=== PATIENT | male | born 1940 | race African-American/Black ===

== ENCOUNTER 2017-12-27 04:24 | Inpatient (IN) | payer OTHER, MEDICAID ==
[~2017-12-27] VITALS: Ht 182.9 cm; Wt 74.8 kg
[2017-12-27] MEDS ORDERED: ACETAMINOPHEN 325MG TABLET PO ONE (05:45)
[2017-12-27 07:55] LABS: CHLORIDE 100 mEq/L (98-107)
[2017-12-27 08:02] LABS: HEMATOCRIT. 37.5 % (42.0-52.0); HEMOGLOBIN. 12.8 g/dL (14.0-18.0); MEAN CORPUSCULAR HEMOGLOBIN 28.7 pg (28.0-32.0); MEAN PLATELET VOLUME 6.8 fl (7.4-10.4); PLATELET 472 x1000/uL (130-400); RED BLOOD CELL COUNT 4.46 mill/uL (4.7-6.1); RED CELL DISTRIBUTION WIDTH 14.3 % (11.6-14.6)
[2017-12-27 09:08] LABS: PLATELET ESTIMATE SLIGHTLY INCREASED
[2017-12-27] MEDS ORDERED: SODIUM CHLORIDE 0.9% 1,000 ML IV ONE (09:09)
[2017-12-27] MEDS ORDERED: VANCOMYCIN 1 G PREMIX 200 ML IV ONE (09:15)
[2017-12-27] MEDS ORDERED: PIPERACILLIN/TAZ 3.375G PREMIX 50 ML IV ONE (09:15)
[2017-12-27 09:29] LABS: CLARITY URINE CLOUDY (CLEAR); COLOR URINE AMBER (YELLOW); KETONES URINE TRACE (NEGATIVE); LEUKOCYTE ESTERASE URINE 1+ (NEGATIVE); NITRITE URINE NEGATIVE (NEGATIVE); OCCULT BLOOD URINE TRACE (NEGATIVE); PH URINE 5.5 (4.5-8.0); PROTEIN URINE 2+ (NEGATIVE); SPECIFIC GRAVITY URINE 1.024 (1.005-1.030)
[2017-12-27 10:22] LABS: INR 1.2; PROTHROMBIN TIME 12.7 sec (9.4-11.6)
[2017-12-27] MEDS ORDERED: ACETAMINOPHEN 325MG TABLET PO PRN (10:30)
[2017-12-27] MEDS ORDERED: ONDANSETRON HCL 4MG/2ML VIAL IV PRN (11:15)
[2017-12-27] MEDS ORDERED: GUAIFENESIN 200MG/10ML SUGAR FREE UDC PO PRN (11:15)
[2017-12-27] MEDS ORDERED: IPRATROPIUM/ALBUTEROL 0.5-3(2.5)MG/3ML NEB INH PRN (11:15)
[2017-12-27] MEDS ORDERED: VANCOMYCIN 1 G PREMIX 200 ML IV SCH ×2 (11:15→18:00)
[2017-12-27] MEDS ORDERED: DIPHENHYDRAMINE 50MG/ML VIAL IV PRN (11:15)
[2017-12-27] MEDS ORDERED: NA PHOS,M-B/NA PHOS,DI-BA ENEMA 118ML PR PRN (11:15)
[2017-12-27] MEDS ORDERED: MAGNESIUM/ALUMINUM HYDROXIDE/SIMETHICONE 30ML UDC PO PRN (11:15)
[2017-12-27] MEDS ORDERED: TRAMADOL 50MG TABLET PO PRN (11:15)
[2017-12-27] MEDS ORDERED: NITROGLYCERIN 0.4MG TABLET SL SL PRN (11:15)
[2017-12-27] MEDS ORDERED: DOCUSATE SODIUM 100MG CAPSULE PO PRN (11:15)
[2017-12-27 16:20] VITALS: BP 134/65
[2017-12-27 16:30] VITALS: BP 134/65
[2017-12-27] MEDS: FAMOTIDINE 20MG TABLET PO SCH (17:00)
[2017-12-27] MEDS: ENOXAPARIN 40MG/0.4ML SYR SUBCUT SCH (17:00)
[2017-12-27] MEDS ORDERED: DICL50TA9 PO (18:23)
[2017-12-27] MEDS ORDERED: HYDR-4001 PO (18:23)
[2017-12-27] MEDS ORDERED: AMLO5TAB88 PO (18:23)
[2017-12-27] MEDS: PIPERACILLIN/TAZ 3.375G PREMIX 50 ML IV SCH ×2 (19:25→23:29)
[2017-12-27 20:00] VITALS: BP 117/65
[2017-12-27] MEDS: ASCORBIC ACID 500 MG TABLET PO SCH (20:23)
[2017-12-27] MEDS: ACETAMINOPHEN 325MG TABLET PO PRN (20:39)
[2017-12-27] MEDS: ZOLPIDEM TARTRATE 5MG TABLET PO PRN (23:28)
[2017-12-28] VITALS: BP 114/60
[2017-12-28] MEDS: LORAZEPAM 0.5MG TABLET PO PRN ×2 (00:38→21:09)
[2017-12-28] MEDS: MORPHINE SULFATE 4 MG/ML CPJ (NOT FOR IM USE) IV PRN (01:55)
[2017-12-28 04:00] VITALS: BP 133/68
[2017-12-28] MEDS: PIPERACILLIN/TAZ 3.375G PREMIX 50 ML IV SCH ×3 (05:55→21:45)
[2017-12-28 08:00] VITALS: BP 135/69
[2017-12-28] MEDS: ZINC SULFATE 220 MG ( 50 ) CAPSULE PO SCH (09:06)
[2017-12-28] MEDS: ASCORBIC ACID 500 MG TABLET PO SCH ×2 (09:07→21:09)
[2017-12-28] MEDS: FAMOTIDINE 20MG TABLET PO SCH (09:07)
[2017-12-28 12:00] VITALS: BP 139/73
[2017-12-28] MEDS ORDERED: DILTIAZEM HCL 30MG TABLET PO SCH (12:30)
[2017-12-28] MEDS: VANCOMYCIN 1250MG in DEXTROSE 5% WATER 250ML IV SCH (13:24)
[2017-12-28 16:00] VITALS: BP 138/68
[2017-12-28] MEDS: DEXT 5%/0.45% NACL 1000ML 1,000 ML IV SCH (16:14)
[2017-12-28] MEDS: ENOXAPARIN 40MG/0.4ML SYR SUBCUT SCH (17:26)
[2017-12-28 20:00] VITALS: BP 140/73
[2017-12-28] MEDS: DILTIAZEM HCL 60MG TABLET PO SCH (21:29)
[2017-12-28] MEDS: ZOLPIDEM TARTRATE 5MG TABLET PO PRN (22:29)
[2017-12-29] VITALS (9 sets, daily range): BP systolic 125–149; BP diastolic 65–99
[2017-12-29] MEDS: PIPERACILLIN/TAZ 3.375G PREMIX 50 ML IV SCH ×4 (02:07→20:35)
[2017-12-29] MEDS: DEXT 5%/0.45% NACL 1000ML 1,000 ML IV SCH (02:08)
[2017-12-29] MEDS: DILTIAZEM HCL 60MG TABLET PO SCH (05:09)
[2017-12-29] MEDS: VANCOMYCIN 1250MG in DEXTROSE 5% WATER 250ML IV SCH (05:09)
[2017-12-29 05:36] LABS: HEMATOCRIT. 35.1 % (42.0-52.0); HEMOGLOBIN. 11.8 g/dL (14.0-18.0); MEAN CORPUSCULAR HEMOGLOBIN 28.1 pg (28.0-32.0); MEAN CORPUSCULAR VOLUME 83.4 fL (80.0-94.0); MEAN PLATELET VOLUME 7.2 fl (7.4-10.4); PLATELET 276 x1000/uL (130-400); RED BLOOD CELL COUNT 4.21 mill/uL (4.7-6.1); RED CELL DISTRIBUTION WIDTH 14.7 % (11.6-14.6)
[2017-12-29 06:14] LABS: CHLORIDE 108 mEq/L (98-107)
[2017-12-29] MEDS ORDERED: POTASSIUM CHLORIDE 20MEQ TABLET SR PO NR ×2 (08:45→17:00)
[2017-12-29 09:00] LABS: BG BASE EXCESS 2.5 mmol/L (-2.0-2.0); BG CARBOXYHEMOGLOBIN 0.5 % (0.5-1.5); BG DEOXYHEMOGLOBIN 5.8 % (0.0-5.0); BG FRACTION INSPIRED OXYGEN 21; BG HCO3 ACT 24.2 mmol/L (22.0-26.0); BG METHEMOGLOBIN 0.4 % (0.0-1.5); BG OXYGEN SATURATION 94.1 % (92.0-98.5); BG OXYHEMOGLOBIN 93.3 % (94.0-97.0); BG PH 7.539 (7.350-7.450); BG PO2 66.7 mmHg (75.0-100.0); BG SAMPLE SITE RIGHT RADIAL; BG TOTAL HEMOGLOBIN 13.3 g/dL (12.0-18.0); BG VENT MODE ROOM AIR
[2017-12-29] MEDS: ASCORBIC ACID 500 MG TABLET PO SCH ×2 (09:00→22:03)
[2017-12-29] MEDS ORDERED: POTASSIUM CHLORIDE INJ 40 MEQ in DEXT 5% WATER 500 ML IV NR (09:30)
[2017-12-29] MEDS: FAMOTIDINE 20MG TABLET PO SCH ×2 (09:33→22:03)
[2017-12-29] MEDS: ZINC SULFATE 220 MG ( 50 ) CAPSULE PO SCH (09:34)
[2017-12-29 12:17] LABS: BG BASE EXCESS 0.6 mmol/L (-2.0-2.0); BG CARBOXYHEMOGLOBIN 0.1 % (0.5-1.5); BG DEOXYHEMOGLOBIN 1.1 % (0.0-5.0); BG FRACTION INSPIRED OXYGEN 60; BG HCO3 ACT 22.8 mmol/L (22.0-26.0); BG METHEMOGLOBIN 0.4 % (0.0-1.5); BG OXYGEN SATURATION 98.9 % (92.0-98.5); BG OXYHEMOGLOBIN 98.4 % (94.0-97.0); BG PCO2 29.3 mmHg (35.0-45.0); BG PH 7.508 (7.350-7.450); BG SAMPLE SITE RIGHT BRACHIAL; BG TOTAL HEMOGLOBIN 12.8 g/dL (12.0-18.0); BG VENT MODE MASK - SIMPLE
[2017-12-29] MEDS ORDERED: IPRATROPIUM/ALBUTEROL 0.5-3(2.5)MG/3ML NEB HHN PRN (13:00)
[2017-12-29] MEDS ORDERED: FUROSEMIDE 40MG/4ML VIAL IVP NR (13:45)
[2017-12-29] MEDS: IPRATROPIUM BROMIDE (0.02%) 0.5MG/2.5ML NEB HHN SCH ×2 (14:22→21:58)
[2017-12-29 14:25] LABS: PLATELET ESTIMATE NORMAL
[2017-12-29] MEDS: DILTIAZEM HCL 90MG TABLET PO SCH ×2 (14:59→22:11)
[2017-12-29] MEDS ORDERED: VANCOMYCIN 1500MG in DEXTROSE 5% WATER 250ML IV SCH (17:00)
[2017-12-29] MEDS: ENOXAPARIN 40MG/0.4ML SYR SUBCUT SCH (18:00)
[2017-12-29] MEDS: CEFAZOLIN 2,000 MG in DEXT 5% WATER 100 ML IV SCH (18:02)
[2017-12-29] MEDS: LORAZEPAM 0.5MG TABLET PO PRN (18:06)
[2017-12-29] MEDS: ZOLPIDEM TARTRATE 5MG TABLET PO PRN (22:03)
[2017-12-30] VITALS (9 sets, daily range): BP systolic 116–164; BP diastolic 65–91
[2017-12-30] MEDS: LORAZEPAM 0.5MG TABLET PO PRN (00:59)
[2017-12-30] MEDS: IPRATROPIUM BROMIDE (0.02%) 0.5MG/2.5ML NEB HHN SCH ×4 (02:12→21:12)
[2017-12-30] MEDS: PIPERACILLIN/TAZ 3.375G PREMIX 50 ML IV SCH ×4 (02:24→21:00)
[2017-12-30] MEDS: CEFAZOLIN 2,000 MG in DEXT 5% WATER 100 ML IV SCH ×3 (02:50→16:44)
[2017-12-30 05:33] LABS: HEMOGLOBIN. 12.7 g/dL (14.0-18.0); MEAN CORPUSCULAR VOLUME 84.2 fL (80.0-94.0); MEAN PLATELET VOLUME 7.6 fl (7.4-10.4); PLATELET 247 x1000/uL (130-400); RED BLOOD CELL COUNT 4.52 mill/uL (4.7-6.1); RED CELL DISTRIBUTION WIDTH 14.7 % (11.6-14.6)
[2017-12-30] MEDS: DILTIAZEM HCL 90MG TABLET PO SCH ×3 (06:09→21:17)
[2017-12-30 06:29] LABS: CHLORIDE 109 mEq/L (98-107)
[2017-12-30 06:37] LABS: CREATINE KINASE 46 IU/L (39-308)
[2017-12-30 06:42] LABS: T4 FREE 1.45 ng/dL (0.76-1.46)
[2017-12-30 07:11] LABS: ATYPICAL LYMPHOCYTES 3; PLATELET ESTIMATE NORMAL
[2017-12-30] MEDS: ZINC SULFATE 220 MG ( 50 ) CAPSULE PO SCH (08:24)
[2017-12-30] MEDS: ASCORBIC ACID 500 MG TABLET PO SCH ×2 (08:24→21:17)
[2017-12-30] MEDS: FAMOTIDINE 20MG TABLET PO SCH ×2 (08:25→21:17)
[2017-12-30 09:23] LABS: C REACTIVE PROTEIN QUANT > 190.0 mg/L (0.0-3.0)
[2017-12-30] MEDS ORDERED: KCL 20MEQ/100ML PREMIX 100 ML IV NR (09:30)
[2017-12-30] MEDS: ENOXAPARIN 40MG/0.4ML SYR SUBCUT SCH (16:43)
[2017-12-30] MEDS: ZOLPIDEM TARTRATE 5MG TABLET PO PRN (21:17)
[2017-12-31] VITALS (21 sets, daily range): BP systolic 117–169; BP diastolic 61–80
[2017-12-31] MEDS: PIPERACILLIN/TAZ 3.375G PREMIX 50 ML IV SCH ×3 (01:41→14:27)
[2017-12-31] MEDS: MORPHINE SULFATE 4 MG/ML CPJ (NOT FOR IM USE) IV PRN (01:44)
[2017-12-31] MEDS: CEFAZOLIN 2,000 MG in DEXT 5% WATER 100 ML IV SCH ×3 (02:47→17:32)
[2017-12-31] MEDS: IPRATROPIUM BROMIDE (0.02%) 0.5MG/2.5ML NEB HHN SCH ×4 (03:25→20:43)
[2017-12-31] MEDS: DILTIAZEM HCL 90MG TABLET PO SCH ×3 (06:04→21:01)
[2017-12-31 06:31] LABS: HEMATOCRIT. 38.3 % (42.0-52.0); HEMOGLOBIN. 12.8 g/dL (14.0-18.0); MEAN CORPUSCULAR HEMOGLOBIN 28.2 pg (28.0-32.0); MEAN CORPUSCULAR VOLUME 84.2 fL (80.0-94.0); PLATELET 238 x1000/uL (130-400); RED BLOOD CELL COUNT 4.55 mill/uL (4.7-6.1); RED CELL DISTRIBUTION WIDTH 14.8 % (11.6-14.6)
[2017-12-31 06:34] LABS: CHLORIDE 114 mEq/L (98-107)
[2017-12-31] MEDS: ASCORBIC ACID 500 MG TABLET PO SCH ×2 (09:54→21:01)
[2017-12-31] MEDS: ZINC SULFATE 220 MG ( 50 ) CAPSULE PO SCH (09:54)
[2017-12-31] MEDS: FAMOTIDINE 20MG TABLET PO SCH ×2 (09:54→21:01)
[2017-12-31] MEDS ORDERED: KCL 20MEQ/100ML PREMIX 100 ML IV ONE (15:00)
[2017-12-31 17:12] LABS: PLATELET ESTIMATE NORMAL
[2017-12-31] MEDS: ENOXAPARIN 40MG/0.4ML SYR SUBCUT SCH (17:14)
[2017-12-31] MEDS ORDERED: BISACODYL 10MG SUPP PR ONE (17:30)
[2017-12-31] MEDS ORDERED: BLOOD SUGAR DIAGNOSTIC STRIP TEST SCH (17:53)
[2017-12-31] MEDS ORDERED: INSULIN LISPRO 100 UNITS/ML SUBCUT SCH (18:00)
[2017-12-31] MEDS ORDERED: DEXTROSE 50% WATER 50ML SYRINGE IV PRN (18:00)
[2017-12-31] MEDS ORDERED: KCL 20MEQ/100ML PREMIX 100 ML IV SCH (21:00)
[2017-12-31] MEDS: INSULIN LISPRO 100 UNITS/ML SUBCUT SCH (21:00)
[2017-12-31] MEDS: ZOLPIDEM TARTRATE 5MG TABLET PO PRN (21:01)
[2017-12-31] MEDS: DEXT 5% WATER + KCL 20MEQ/L 1,000 ML IV SCH (21:01)
[2017-12-31] MEDS: BLOOD SUGAR DIAGNOSTIC STRIP TEST SCH (21:02)
[2018-01-01] VITALS (9 sets, daily range): BP systolic 127–150; BP diastolic 66–86
[2018-01-01] MEDS: IPRATROPIUM BROMIDE (0.02%) 0.5MG/2.5ML NEB HHN SCH ×4 (02:36→20:22)
[2018-01-01] MEDS: CEFAZOLIN 2,000 MG in DEXT 5% WATER 100 ML IV SCH ×3 (02:40→17:42)
[2018-01-01] MEDS: DILTIAZEM HCL 90MG TABLET PO SCH ×3 (05:19→22:47)
[2018-01-01 06:41] LABS: HEMATOCRIT. 42.2 % (42.0-52.0); HEMOGLOBIN. 13.8 g/dL (14.0-18.0); MEAN CORPUSCULAR HEMOGLOBIN 27.9 pg (28.0-32.0); MEAN CORPUSCULAR VOLUME 85.3 fL (80.0-94.0); MEAN PLATELET VOLUME 8.4 fl (7.4-10.4); PLATELET 283 x1000/uL (130-400); RED BLOOD CELL COUNT 4.94 mill/uL (4.7-6.1); RED CELL DISTRIBUTION WIDTH 14.9 % (11.6-14.6)
[2018-01-01] MEDS: BLOOD SUGAR DIAGNOSTIC STRIP TEST SCH ×4 (07:35→21:00)
[2018-01-01] MEDS: FAMOTIDINE 20MG TABLET PO SCH ×2 (08:17→22:45)
[2018-01-01] MEDS: ASCORBIC ACID 500 MG TABLET PO SCH ×2 (08:18→22:45)
[2018-01-01] MEDS: INSULIN LISPRO 100 UNITS/ML SUBCUT SCH ×4 (08:18→23:15)
[2018-01-01] MEDS: ZINC SULFATE 220 MG ( 50 ) CAPSULE PO SCH (08:18)
[2018-01-01 08:20] LABS: CHLORIDE 112 mEq/L (98-107)
[2018-01-01] MEDS: DEXT 5% WATER + KCL 20MEQ/L 1,000 ML IV SCH ×2 (08:38→22:47)
[2018-01-01 12:53] LABS: PLATELET ESTIMATE NORMAL
[2018-01-01] MEDS: ENOXAPARIN 40MG/0.4ML SYR SUBCUT SCH (17:42)
[2018-01-01] MEDS ORDERED: VANCOMYCIN HCL 1000 MG/20 ML ORAL PO SCH (18:00)
[2018-01-02] MEDS: IPRATROPIUM BROMIDE (0.02%) 0.5MG/2.5ML NEB HHN SCH ×3 (01:25→19:49)
[2018-01-02] MEDS: CEFAZOLIN 2,000 MG in DEXT 5% WATER 100 ML IV SCH ×3 (02:20→19:09)
[2018-01-02 06:29] LABS: HEMATOCRIT 43.6 % (42.0-52.0); HEMOGLOBIN 14.4 g/dL (14.0-18.0); MEAN CORPUSCULAR VOLUME 84.8 fL (80.0-94.0); PLATELET 434 x1000/uL (130-400); RED BLOOD CELL COUNT 5.14 mill/uL (4.7-6.1); RED CELL DISTRIBUTION WIDTH 14.7 % (11.6-14.6)
[2018-01-02 06:42] LABS: CHLORIDE 107 mEq/L (98-107)
[2018-01-02] MEDS: DILTIAZEM HCL 90MG TABLET PO SCH ×3 (07:10→21:33)
[2018-01-02] MEDS: BLOOD SUGAR DIAGNOSTIC STRIP TEST SCH ×4 (07:30→21:33)
[2018-01-02 08:00] VITALS: BP 141/64
[2018-01-02] MEDS: INSULIN LISPRO 100 UNITS/ML SUBCUT SCH ×4 (08:00→21:00)
[2018-01-02] MEDS: ZINC SULFATE 220 MG ( 50 ) CAPSULE PO SCH (08:52)
[2018-01-02] MEDS: ASCORBIC ACID 500 MG TABLET PO SCH ×2 (08:52→21:32)
[2018-01-02] MEDS: FAMOTIDINE 20MG TABLET PO SCH ×2 (08:52→21:32)
[2018-01-02] MEDS: DEXT 5% WATER + KCL 20MEQ/L 1,000 ML IV SCH (11:44)
[2018-01-02 12:00] VITALS: BP 148/76
[2018-01-02] MEDS ORDERED: KCL 20MEQ/100ML PREMIX 100 ML IV NR (12:30)
[2018-01-02 16:00] VITALS: BP 151/94
[2018-01-02] MEDS: ENOXAPARIN 40MG/0.4ML SYR SUBCUT SCH (17:18)
[2018-01-02] MEDS ORDERED: IOHEXOL-300 100 ML BOTTLE ONE (18:45)
[2018-01-02 20:00] VITALS: BP 151/68
[2018-01-02] MEDS: ACETAMINOPHEN 325MG TABLET PO PRN (21:32)
[2018-01-02] MEDS ORDERED: VANCOMYCIN 1 G PREMIX 200 ML IV SCH (23:15)
[2018-01-02] MEDS ORDERED: LEVOFLOXACIN 750MG PREMIX 150 ML IV ONE (23:15)
[2018-01-03] VITALS (8 sets, daily range): BP systolic 119–140; BP diastolic 53–103
[2018-01-03] MEDS: MEROPENEM 1,000 MG in SODIUM CHLORIDE 0.9% 100 ML IV SCH ×3 (01:38→18:16)
[2018-01-03] MEDS: DEXT 5% WATER + KCL 20MEQ/L 1,000 ML IV SCH ×2 (01:39→20:28)
[2018-01-03] MEDS: IPRATROPIUM BROMIDE (0.02%) 0.5MG/2.5ML NEB HHN SCH ×3 (02:05→14:35)
[2018-01-03] MEDS ORDERED: VANCOMYCIN 1250MG in DEXTROSE 5% WATER 250ML IV NR (03:00)
[2018-01-03] MEDS: VANCOMYCIN 1500MG in DEXTROSE 5% WATER 250ML IV SCH ×2 (04:42→18:16)
[2018-01-03 06:10] LABS: HEMATOCRIT. 42.2 % (42.0-52.0); HEMOGLOBIN. 13.8 g/dL (14.0-18.0); MEAN CORPUSCULAR HEMOGLOBIN 28.1 pg (28.0-32.0); MEAN CORPUSCULAR VOLUME 85.8 fL (80.0-94.0); MEAN PLATELET VOLUME 9.7 fl (7.4-10.4); PLATELET 379 x1000/uL (130-400); RED BLOOD CELL COUNT 4.92 mill/uL (4.7-6.1); RED CELL DISTRIBUTION WIDTH 14.8 % (11.6-14.6)
[2018-01-03] MEDS: DILTIAZEM HCL 90MG TABLET PO SCH ×3 (06:20→20:26)
[2018-01-03 07:28] LABS: CHLORIDE 107 mEq/L (98-107)
[2018-01-03] MEDS: INSULIN LISPRO 100 UNITS/ML SUBCUT SCH ×4 (07:53→20:30)
[2018-01-03] MEDS: BLOOD SUGAR DIAGNOSTIC STRIP TEST SCH ×4 (07:53→20:28)
[2018-01-03 08:19] LABS: PLATELET ESTIMATE NORMAL
[2018-01-03] MEDS ORDERED: LEVOFLOXACIN 500MG PREMIX 100 ML IV SCH (09:00)
[2018-01-03] MEDS: ASCORBIC ACID 500 MG TABLET PO SCH ×2 (09:04→20:27)
[2018-01-03] MEDS: ZINC SULFATE 220 MG ( 50 ) CAPSULE PO SCH (09:04)
[2018-01-03] MEDS: FAMOTIDINE 20MG TABLET PO SCH ×2 (09:04→20:26)
[2018-01-03 10:41] LABS: HEPATITIS B SURFACE ANTIGEN NEGATIVE
[2018-01-03] MEDS ORDERED: IOHEXOL-300 100 ML BOTTLE ONE (10:47)
[2018-01-03 11:08] LABS: HEPATITIS B CORE AB IGM NEGATIVE
[2018-01-03 11:10] LABS: HEPATITIS A AB IGM NEGATIVE (NEGATIVE)
[2018-01-03] MEDS: ENOXAPARIN 40MG/0.4ML SYR SUBCUT SCH (18:16)
[2018-01-04] VITALS (15 sets, daily range): BP systolic 110–152; BP diastolic 58–76
[2018-01-04] MEDS: IPRATROPIUM BROMIDE (0.02%) 0.5MG/2.5ML NEB HHN SCH ×3 (01:31→21:03)
[2018-01-04] MEDS: MEROPENEM 1,000 MG in SODIUM CHLORIDE 0.9% 100 ML IV SCH ×2 (01:54→10:35)
[2018-01-04] MEDS: VANCOMYCIN 1500MG in DEXTROSE 5% WATER 250ML IV SCH (05:31)
[2018-01-04] MEDS: DILTIAZEM HCL 90MG TABLET PO SCH ×3 (05:37→20:33)
[2018-01-04 06:17] LABS: HEMATOCRIT. 32.8 % (42.0-52.0); MEAN CORPUSCULAR HEMOGLOBIN 28.3 pg (28.0-32.0); MEAN CORPUSCULAR VOLUME 84.2 fL (80.0-94.0); MEAN PLATELET VOLUME 8.3 fl (7.4-10.4); PLATELET 592 x1000/uL (130-400); RED BLOOD CELL COUNT 3.89 mill/uL (4.7-6.1); RED CELL DISTRIBUTION WIDTH 14.1 % (11.6-14.6)
[2018-01-04 06:22] LABS: CHLORIDE 107 mEq/L (98-107)
[2018-01-04 07:56] LABS: BG BASE EXCESS 0.3 mmol/L (-2.0-2.0); BG CARBOXYHEMOGLOBIN 0.8 % (0.5-1.5); BG DEOXYHEMOGLOBIN 4.1 % (0.0-5.0); BG HCO3 ACT 22.4 mmol/L (22.0-26.0); BG METHEMOGLOBIN 0.4 % (0.0-1.5); BG OXYGEN SATURATION 95.9 % (92.0-98.5); BG OXYHEMOGLOBIN 94.7 % (94.0-97.0); BG PCO2 28.6 mmHg (35.0-45.0); BG PH 7.512 (7.350-7.450); BG PO2 77.4 mmHg (75.0-100.0); BG SAMPLE SITE RIGHT RADIAL; BG TOTAL HEMOGLOBIN 12.1 g/dL (12.0-18.0); BG VENT MODE NASAL CANNULA
[2018-01-04] MEDS: INSULIN LISPRO 100 UNITS/ML SUBCUT SCH ×4 (08:00→21:00)
[2018-01-04 08:13] LABS: CLARITY URINE CLOUDY (CLEAR); COLOR URINE YELLOW (YELLOW); KETONES URINE TRACE (NEGATIVE); LEUKOCYTE ESTERASE URINE 1+ (NEGATIVE); NITRITE URINE NEGATIVE (NEGATIVE); OCCULT BLOOD URINE 3+ (NEGATIVE); PROTEIN URINE 2+ (NEGATIVE); SPECIFIC GRAVITY URINE 1.028 (1.005-1.030)
[2018-01-04] MEDS: BLOOD SUGAR DIAGNOSTIC STRIP TEST SCH ×4 (08:23→21:00)
[2018-01-04] MEDS: FAMOTIDINE 20MG TABLET PO SCH ×2 (08:49→20:33)
[2018-01-04] MEDS: ZINC SULFATE 220 MG ( 50 ) CAPSULE PO SCH (08:58)
[2018-01-04] MEDS: ASCORBIC ACID 500 MG TABLET PO SCH ×2 (08:58→21:00)
[2018-01-04 10:06] LABS: PLATELET ESTIMATE INCREASED
[2018-01-04] MEDS ORDERED: BISACODYL 5MG TABLET PO NR (12:45)
[2018-01-04] MEDS: POTASSIUM CHLORIDE 20MEQ TABLET SR PO SCH (13:34)
[2018-01-04] MEDS ORDERED: LIDOCAINE HCL/PF 1% 2ML VIAL ONE (13:46)
[2018-01-04] MEDS: NAFCILLIN SODIUM 2,000 MG in SODIUM CHLORIDE 0.9% 100 ML IV SCH ×2 (15:57→20:33)
[2018-01-04] MEDS: DOCUSATE SODIUM 250MG CAPSULE PO SCH (15:58)
[2018-01-04] MEDS: ENOXAPARIN 40MG/0.4ML SYR SUBCUT SCH (15:59)
[2018-01-04] MEDS: GUAIFENESIN 600MG ER TABLET PO SCH (20:33)
[2018-01-04] MEDS ORDERED: VANCOMYCIN 1250MG in DEXTROSE 5% WATER 250ML IV SCH (21:00)
[2018-01-05] VITALS (7 sets, daily range): BP systolic 116–160; BP diastolic 61–96
[2018-01-05] MEDS: IPRATROPIUM BROMIDE (0.02%) 0.5MG/2.5ML NEB HHN SCH ×4 (02:24→19:55)
[2018-01-05] MEDS: NAFCILLIN SODIUM 2,000 MG in SODIUM CHLORIDE 0.9% 100 ML IV SCH ×7 (04:44→20:50)
[2018-01-05 06:23] LABS: HEMATOCRIT 33.4 % (42.0-52.0); MEAN CORPUSCULAR HEMOGLOBIN 27.8 pg (28.0-32.0); MEAN CORPUSCULAR VOLUME 84.6 fL (80.0-94.0); PLATELET 633 x1000/uL (130-400); RED BLOOD CELL COUNT 3.95 mill/uL (4.7-6.1); RED CELL DISTRIBUTION WIDTH 14.4 % (11.6-14.6)
[2018-01-05] MEDS: DILTIAZEM HCL 90MG TABLET PO SCH ×2 (06:35→16:52)
[2018-01-05] MEDS: BLOOD SUGAR DIAGNOSTIC STRIP TEST SCH ×4 (07:30→21:00)
[2018-01-05] MEDS: INSULIN LISPRO 100 UNITS/ML SUBCUT SCH ×4 (08:00→21:00)
[2018-01-05] MEDS: DOCUSATE SODIUM 250MG CAPSULE PO SCH ×2 (09:00→17:00)
[2018-01-05] MEDS: GUAIFENESIN 600MG ER TABLET PO SCH ×2 (09:59→20:50)
[2018-01-05] MEDS: POTASSIUM CHLORIDE 20MEQ TABLET SR PO SCH (09:59)
[2018-01-05] MEDS: ZINC SULFATE 220 MG ( 50 ) CAPSULE PO SCH (09:59)
[2018-01-05] MEDS: FAMOTIDINE 20MG TABLET PO SCH (09:59)
[2018-01-05] MEDS: ASCORBIC ACID 500 MG TABLET PO SCH ×2 (09:59→20:50)
[2018-01-05] MEDS: SODIUM CHLORIDE 0.9% 1,000 ML IV SCH (13:02)
[2018-01-05] MEDS: ENOXAPARIN 30MG/0.3ML SYR SUBCUT SCH (17:57)
[2018-01-06] VITALS (7 sets, daily range): BP systolic 117–153; BP diastolic 50–85
[2018-01-06] MEDS: IPRATROPIUM BROMIDE (0.02%) 0.5MG/2.5ML NEB HHN SCH ×4 (00:02→21:21)
[2018-01-06] MEDS: DILTIAZEM HCL 90MG TABLET PO SCH ×4 (00:38→21:05)
[2018-01-06] MEDS: NAFCILLIN SODIUM 2,000 MG in SODIUM CHLORIDE 0.9% 100 ML IV SCH ×6 (00:40→21:05)
[2018-01-06 07:18] LABS: HEMOGLOBIN 10.4 g/dL (14.0-18.0); MEAN CORPUSCULAR HEMOGLOBIN 28.2 pg (28.0-32.0); MEAN CORPUSCULAR VOLUME 84.1 fL (80.0-94.0); PLATELET 852 x1000/uL (130-400); RED BLOOD CELL COUNT 3.68 mill/uL (4.7-6.1); RED CELL DISTRIBUTION WIDTH 14.2 % (11.6-14.6)
[2018-01-06] MEDS: BLOOD SUGAR DIAGNOSTIC STRIP TEST SCH ×4 (07:56→21:05)
[2018-01-06] MEDS: INSULIN LISPRO 100 UNITS/ML SUBCUT SCH ×4 (08:00→21:00)
[2018-01-06] MEDS: ASCORBIC ACID 500 MG TABLET PO SCH ×2 (08:29→21:05)
[2018-01-06] MEDS: ZINC SULFATE 220 MG ( 50 ) CAPSULE PO SCH (08:29)
[2018-01-06] MEDS: GUAIFENESIN 600MG ER TABLET PO SCH ×2 (08:29→21:05)
[2018-01-06] MEDS: SODIUM CHLORIDE 0.9% 1,000 ML IV SCH (08:29)
[2018-01-06] MEDS: DOCUSATE SODIUM 250MG CAPSULE PO SCH ×2 (08:29→16:57)
[2018-01-06] MEDS: FAMOTIDINE 20MG TABLET PO SCH (08:29)
[2018-01-06] MEDS: POTASSIUM CHLORIDE 20MEQ TABLET SR PO SCH (08:29)
[2018-01-06] MEDS ORDERED: HEPARIN 1000 UNITS/ML 10ML ONE (13:22)
[2018-01-06] MEDS: ENOXAPARIN 30MG/0.3ML SYR SUBCUT SCH (16:57)
[2018-01-07] VITALS (9 sets, daily range): BP systolic 127–165; BP diastolic 55–78
[2018-01-07] MEDS: NAFCILLIN SODIUM 2,000 MG in SODIUM CHLORIDE 0.9% 100 ML IV SCH ×6 (00:22→19:50)
[2018-01-07] MEDS: IPRATROPIUM BROMIDE (0.02%) 0.5MG/2.5ML NEB HHN SCH ×3 (01:02→14:52)
[2018-01-07] MEDS: SODIUM CHLORIDE 0.9% 1,000 ML IV SCH (05:00)
[2018-01-07] MEDS: DILTIAZEM HCL 90MG TABLET PO SCH ×3 (05:01→22:35)
[2018-01-07 07:09] LABS: HEMATOCRIT. 32.8 % (42.0-52.0); HEMOGLOBIN. 10.9 g/dL (14.0-18.0); MEAN CORPUSCULAR HEMOGLOBIN 28.1 pg (28.0-32.0); MEAN CORPUSCULAR VOLUME 84.4 fL (80.0-94.0); MEAN PLATELET VOLUME 7.9 fl (7.4-10.4); PLATELET 999 x1000/uL (130-400); RED BLOOD CELL COUNT 3.89 mill/uL (4.7-6.1); RED CELL DISTRIBUTION WIDTH 14.9 % (11.6-14.6)
[2018-01-07] MEDS: BLOOD SUGAR DIAGNOSTIC STRIP TEST SCH ×4 (07:30→20:12)
[2018-01-07] MEDS: INSULIN LISPRO 100 UNITS/ML SUBCUT SCH ×4 (08:00→20:12)
[2018-01-07] MEDS: DOCUSATE SODIUM 250MG CAPSULE PO SCH ×2 (09:29→16:52)
[2018-01-07] MEDS: GUAIFENESIN 600MG ER TABLET PO SCH ×2 (09:29→22:35)
[2018-01-07] MEDS: ZINC SULFATE 220 MG ( 50 ) CAPSULE PO SCH (09:29)
[2018-01-07] MEDS: FAMOTIDINE 20MG TABLET PO SCH (09:29)
[2018-01-07] MEDS: POTASSIUM CHLORIDE 20MEQ TABLET SR PO SCH (09:29)
[2018-01-07] MEDS: ASCORBIC ACID 500 MG TABLET PO SCH ×2 (09:29→22:35)
[2018-01-07 10:55] LABS: PLATELET ESTIMATE INCREASED
[2018-01-07] MEDS: ENOXAPARIN 30MG/0.3ML SYR SUBCUT SCH (16:53)
[2018-01-07] MEDS: FLUCONAZOLE 200 MG/100ML BAG 100 ML IV SCH (17:39)
[2018-01-08] VITALS: BP 152/68
[2018-01-08] MEDS: NAFCILLIN SODIUM 2,000 MG in SODIUM CHLORIDE 0.9% 100 ML IV SCH ×6 (00:59→21:29)
[2018-01-08] MEDS: SODIUM CHLORIDE 0.9% 1,000 ML IV SCH ×2 (01:00→21:29)
[2018-01-08] MEDS: IPRATROPIUM BROMIDE (0.02%) 0.5MG/2.5ML NEB HHN SCH ×4 (02:15→20:42)
[2018-01-08 04:00] VITALS: BP 144/73
[2018-01-08] MEDS: DILTIAZEM HCL 90MG TABLET PO SCH ×3 (06:55→21:30)
[2018-01-08] MEDS: BLOOD SUGAR DIAGNOSTIC STRIP TEST SCH ×4 (07:10→21:43)
[2018-01-08 07:34] LABS: HEMATOCRIT 32.5 % (42.0-52.0); HEMOGLOBIN 10.9 g/dL (14.0-18.0); MEAN CORPUSCULAR HEMOGLOBIN 28.4 pg (28.0-32.0); RED BLOOD CELL COUNT 3.82 mill/uL (4.7-6.1); RED CELL DISTRIBUTION WIDTH 14.6 % (11.6-14.6)
[2018-01-08] MEDS: INSULIN LISPRO 100 UNITS/ML SUBCUT SCH ×4 (07:40→21:00)
[2018-01-08 08:30] VITALS: BP 152/67
[2018-01-08] MEDS: FAMOTIDINE 20MG TABLET PO SCH (08:32)
[2018-01-08] MEDS: GUAIFENESIN 600MG ER TABLET PO SCH ×2 (08:32→21:29)
[2018-01-08] MEDS: DOCUSATE SODIUM 250MG CAPSULE PO SCH ×2 (08:32→16:43)
[2018-01-08] MEDS: ASCORBIC ACID 500 MG TABLET PO SCH ×2 (08:32→21:29)
[2018-01-08] MEDS: ZINC SULFATE 220 MG ( 50 ) CAPSULE PO SCH (08:32)
[2018-01-08 12:00] VITALS: BP 136/65
[2018-01-08 13:25] LABS: PLATELET 1101 x1000/uL (130-400)
[2018-01-08 16:00] VITALS: BP 139/82
[2018-01-08] MEDS: ENOXAPARIN 30MG/0.3ML SYR SUBCUT SCH (16:43)
[2018-01-08] MEDS: FLUCONAZOLE 200 MG/100ML BAG 100 ML IV SCH (18:14)
[2018-01-08 20:00] VITALS: BP 140/70
[2018-01-09] VITALS: BP 135/60
[2018-01-09] MEDS: IPRATROPIUM BROMIDE (0.02%) 0.5MG/2.5ML NEB HHN SCH ×4 (02:31→20:40)
[2018-01-09 04:00] VITALS: BP 165/79
[2018-01-09] MEDS: NAFCILLIN SODIUM 2,000 MG in SODIUM CHLORIDE 0.9% 100 ML IV SCH ×5 (05:36→20:26)
[2018-01-09] MEDS: DILTIAZEM HCL 90MG TABLET PO SCH ×3 (05:53→20:28)
[2018-01-09] MEDS: BLOOD SUGAR DIAGNOSTIC STRIP TEST SCH ×4 (05:58→20:42)
[2018-01-09] MEDS: INSULIN LISPRO 100 UNITS/ML SUBCUT SCH ×4 (05:58→20:42)
[2018-01-09 07:30] VITALS: BP 187/76
[2018-01-09] MEDS: ASCORBIC ACID 500 MG TABLET PO SCH ×2 (09:21→20:28)
[2018-01-09] MEDS: ZINC SULFATE 220 MG ( 50 ) CAPSULE PO SCH (09:21)
[2018-01-09] MEDS: DOCUSATE SODIUM 250MG CAPSULE PO SCH ×2 (09:21→16:44)
[2018-01-09] MEDS: FAMOTIDINE 20MG TABLET PO SCH (09:21)
[2018-01-09] MEDS: CLONIDINE 0.1MG TABLET PO PRN (09:21)
[2018-01-09] MEDS: GUAIFENESIN 600MG ER TABLET PO SCH ×2 (09:21→20:27)
[2018-01-09 12:00] VITALS: BP 160/75
[2018-01-09] MEDS ORDERED: FLUCONAZOLE 100MG/50ML in BAG IV SCH (13:00)
[2018-01-09 13:28] LABS: HEMATOCRIT 26.3 % (42.0-52.0); MEAN CORPUSCULAR HEMOGLOBIN 28.9 pg (28.0-32.0); MEAN CORPUSCULAR VOLUME 84.5 fL (80.0-94.0); PLATELET 876 x1000/uL (130-400); RED BLOOD CELL COUNT 3.11 mill/uL (4.7-6.1); RED CELL DISTRIBUTION WIDTH 14.7 % (11.6-14.6)
[2018-01-09 16:00] VITALS: BP 138/69
[2018-01-09] MEDS: SODIUM CHLORIDE 0.9% 1,000 ML IV SCH (16:50)
[2018-01-09] MEDS: ENOXAPARIN 30MG/0.3ML SYR SUBCUT SCH (16:50)
[2018-01-09 20:00] VITALS: BP 136/61
[2018-01-10] VITALS: BP 132/80
[2018-01-10] MEDS: NAFCILLIN SODIUM 2,000 MG in SODIUM CHLORIDE 0.9% 100 ML IV SCH ×3 (00:25→08:36)
[2018-01-10] MEDS: IPRATROPIUM BROMIDE (0.02%) 0.5MG/2.5ML NEB HHN SCH ×2 (01:13→12:08)
[2018-01-10 04:00] VITALS: BP 122/68
[2018-01-10] MEDS: DILTIAZEM HCL 90MG TABLET PO SCH ×2 (06:31→15:00)
[2018-01-10] MEDS: INSULIN LISPRO 100 UNITS/ML SUBCUT SCH (06:33)
[2018-01-10] MEDS: BLOOD SUGAR DIAGNOSTIC STRIP TEST SCH (06:33)
[2018-01-10 07:20] LABS: HEMOGLOBIN 9.5 g/dL (14.0-18.0); MEAN CORPUSCULAR HEMOGLOBIN 28.5 pg (28.0-32.0); MEAN CORPUSCULAR VOLUME 84.4 fL (80.0-94.0); PLATELET 922 x1000/uL (130-400); RED BLOOD CELL COUNT 3.32 mill/uL (4.7-6.1)
[2018-01-10] MEDS: ASCORBIC ACID 500 MG TABLET PO SCH (08:36)
[2018-01-10] MEDS: GUAIFENESIN 600MG ER TABLET PO SCH (08:36)
[2018-01-10] MEDS: FAMOTIDINE 20MG TABLET PO SCH (08:36)
[2018-01-10] MEDS: ZINC SULFATE 220 MG ( 50 ) CAPSULE PO SCH (08:36)
[2018-01-10] MEDS: DOCUSATE SODIUM 250MG CAPSULE PO SCH (08:36)
[2018-01-10] MEDS: CLONIDINE 0.1MG TABLET PO PRN ×2 (08:36→14:08)
[2018-01-10] MEDS: SODIUM CHLORIDE 0.9% 1,000 ML IV SCH (08:41)
[2018-01-10] MEDS ORDERED: LIDOCAINE HCL/PF 2% 20MG/ML 5 ML/VIAL INJ NR (11:15)
[2018-01-10 12:00] VITALS: BP 181/75
[2018-01-10 14:56] VITALS: BP 169/85
[2018-01-10] MEDS ORDERED: AMLODIPINE 10MG TABLET PO SCH (15:45)
[2018-01-10 16:00] VITALS: BP 152/75
== END 2018-01-10 17:13 | DRG 853 ==
LOC: ER 04:24 → 6EST 10:23 → ENRESERV 13:59 → 5EST 12-29 12:00 → 8WST 01-07 11:50
PROVIDERS: ADMIT Internal Medicine; ATTEND Internal Medicine
PROC: 0HBMXZZ Excision of Right Foot Skin, External Approach (ICD-10-PCS; principal; 2017-12-30)
PROC: 05H933Z Insertion of Infusion Device into Right Brachial Vein, Percutaneous Approach (ICD-10-PCS; 2018-01-01)
PROC: B54MZZA Ultrasonography of Right Upper Extremity Veins, Guidance (ICD-10-PCS; 2018-01-01)
PROC: 0QBN0ZZ Excision of Right Metatarsal, Open Approach (ICD-10-PCS; 2018-01-10)
DX: A41.01 Sepsis due to Methicillin susceptible Staphylococcus aureus (principal); E43 Unspecified severe protein-calorie malnutrition; G93.40 Encephalopathy, unspecified; J96.00 Acute respiratory failure, unspecified whether with hypoxia or hypercapnia; J18.9 Pneumonia, unspecified organism; L03.115 Cellulitis of right lower limb; D68.59 Other primary thrombophilia; E87.0 Hyperosmolality and hypernatremia; E87.3 Alkalosis; J44.0 Chronic obstructive pulmonary disease with (acute) lower respiratory infection; K56.7 Ileus, unspecified; L02.611 Cutaneous abscess of right foot; N17.9 Acute kidney failure, unspecified; M86.8X7 Other osteomyelitis, ankle and foot; M00.871 Arthritis due to other bacteria, right ankle and foot; B37.49 Other urogenital candidiasis; D64.9 Anemia, unspecified; D47.3 Essential (hemorrhagic) thrombocythemia; R65.20 Severe sepsis without septic shock; E87.6 Hypokalemia; M20.11 Hallux valgus (acquired), right foot; E05.90 Thyrotoxicosis, unspecified without thyrotoxic crisis or storm; E86.0 Dehydration; I11.9 Hypertensive heart disease without heart failure; I49.3 Ventricular premature depolarization; L97.519 Non-pressure chronic ulcer of other part of right foot with unspecified severity; R73.03 Prediabetes; M21.961 Unspecified acquired deformity of right lower leg; R26.9 Unspecified abnormalities of gait and mobility; N40.1 Benign prostatic hyperplasia with lower urinary tract symptoms; Z68.22 Body mass index [BMI] 22.0-22.9, adult; Z87.891 Personal history of nicotine dependence
CPT/HCPCS: 36415; 36569; 36600; 70450; 71045; 71260; 73630; 73718; 73721; 74018; 74178; 76770; 76937; 78806; 80048; 80053; 80061; 80076; 80202; 81003; 82375; 82550; 82805; 82962; 83036; 83605; 83690; 83735; 84132; 84145; 84153; 84439; 84443; 85025; 85027; 85610; 85651; 86140; 86705; 86709; 86803; 87040; 87070; 87077; 87086; 87106; 87205; 87340; 92610; 93005; 93306; 93923; 93970; 94640; 96365; 96367; 97022; 97161; 99285; A6261; A9547; C1725; C1893; J0690; J1450; J1644; J1650; J1815; J1940; J2185; J2270; J2543; J3370; J3480; J3490; J7030; J7040; J7050; J7060; J7620; Q9967; G0103

== ENCOUNTER 2019-02-21 07:23 | Emergency (ER) | payer MEDICARE, MEDICAID ==
[~2019-02-21] VITALS: Ht 182.9 cm; Wt 74.0 kg
[~2019-02-21 07:23] MED LIST: ASCO-339 MT; DILT30TA38 MT; DOCU-150 MT; FAMO-133 MT; GUAI600T26 MT; HYDR-4001 PO; ZINC220T4 MT
[2019-02-21 08:04] VITALS: BP 138/62
== END 2019-02-21 09:28 | disposition home or self-care (01) ==
LOC: ER 08:54
DX: G47.00 Insomnia, unspecified (principal); R45.1 Restlessness and agitation; I10 Essential (primary) hypertension
CPT/HCPCS: 99282

== ENCOUNTER 2020-09-01 01:46 | Emergency (ER) | payer OTHER, MEDICAID ==
[~2020-09-01] VITALS: Ht 188 cm; Wt 73.0 kg
[2020-09-01 02:00] VITALS: BP 119/95
[2020-09-01] MEDS ORDERED: LORAZEPAM 0.5MG TABLET PO ONE (02:45)
[2020-09-01 02:54] LABS: BASOPHILS % 0.7 % (0.0-2.0); HEMATOCRIT. 39.2 % (42.0-52.0); HEMOGLOBIN. 13.2 g/dL (14.0-18.0); LYMPHOCYTES % 30.7 % (20.0-50.0); MEAN CORPUSCULAR HEMOGLOBIN 29.2 pg (28.0-32.0); MEAN CORPUSCULAR VOLUME 86.6 fL (80.0-94.0); MEAN PLATELET VOLUME 7.6 fl (7.4-10.4); MONOCYTES % 14.5 % (2.0-8.0); NEUTROPHILS % 53.1 % (40.0-76.0); PLATELET 237 x1000/uL (130-400); RED BLOOD CELL COUNT 4.52 mill/uL (4.7-6.1); RED CELL DISTRIBUTION WIDTH 13.8 % (11.6-14.6)
[2020-09-01 02:58] LABS: CHLORIDE 103 mEq/L (98-107)
[2020-09-01 03:01] LABS: CLARITY URINE CLEAR (CLEAR); COLOR URINE YELLOW (YELLOW); KETONES URINE TRACE (NEGATIVE); LEUKOCYTE ESTERASE URINE NEGATIVE (NEGATIVE); NITRITE URINE NEGATIVE (NEGATIVE); OCCULT BLOOD URINE NEGATIVE (NEGATIVE); PH URINE 5.5 (4.5-8.0); PROTEIN URINE NEGATIVE (NEGATIVE); UROBILINOGEN URINE 0.2 E.U./dL (0.2-1.0)
[2020-09-01 03:03] LABS: ETHANOL BLOOD < 10 mg/dL
[2020-09-01 03:31] LABS: *BARBITURATES SCREEN URINE NEGATIVE (NEGATIVE)
[2020-09-01 03:32] LABS: *BENZODIAZEPINES SCREEN URINE NEGATIVE (NEGATIVE); *COCAINE SCREEN URINE NEGATIVE (NEGATIVE); CANNABINOID URINE SCREEN NEGATIVE (NEGATIVE); METHADONE URINE SCREEN PRESUMTIVE POSITIVE (NEGATIVE); OPIATES URINE SCREEN NEGATIVE (NEGATIVE); PHENCYCLIDINE URINE SCREEN NEGATIVE (NEGATIVE)
[2020-09-01 03:33] LABS: *AMPHETAMINES SCREEN URINE NEGATIVE (NEGATIVE)
[2020-09-01] MEDS ORDERED: LORA-249 MT (03:53)
[2020-09-01] MEDS ORDERED: LORAZEPAM 1MG TABLET PO ONE (04:00)
== END 2020-09-01 04:08 | disposition home or self-care (01) ==
LOC: ER 01:46
DX: F41.1 Generalized anxiety disorder (principal); F43.0 Acute stress reaction; Z63.79 Other stressful life events affecting family and household; I10 Essential (primary) hypertension; E78.00 Pure hypercholesterolemia, unspecified; D64.9 Anemia, unspecified; I73.9 Peripheral vascular disease, unspecified
CPT/HCPCS: 36415; 71045; 80053; 80305; 80320; 81003; 84484; 85025; 99285; G0480